=== PATIENT | female | born 1980 | race Caucasian/White ===

== ENCOUNTER 2019-06-04 13:47 | Emergency (ER) | payer OTHER ==
[~2019-06-04] VITALS: Ht 160 cm; Wt 104.3 kg
[2019-06-04 15:00] LABS: HEMATOCRIT 27.1 % (37.0-47.0); HEMOGLOBIN 8.8 gm/dL (12.0-15.0); MCH 22.7 pg (26.0-34.0); MCHC 32.4 g/dL (28.0-37.0); MCV 70.3 fL (80.0-100.0); MPV 7.8 fl. (7.2-11.1); NUCLEATED RBCS 0 /100WBC; PLATELET COUNT* 225 thou/uL (150-400); RBC 3.86 mil/uL (4.20-5.00); RDW-CV 16.3 % (10.5-14.5); WBC 3.7 thou/uL (4.0-11.0)
[2019-06-04 15:05] LABS: CALCIUM 7.8 mg/dL (8.5-10.1); CREATININE 0.7 mg/dL (0.6-1.3); POTASSIUM 3.7 mmol/L (3.5-5.1)
[2019-06-04 15:07] LABS: APTT 23.4 Seconds (25.0-31.3); PROTIME 10.1 Seconds (9.20-11.50)
[2019-06-04 15:09] LABS: URINE BILIRUBIN NEGATIVE (Negative); URINE BLOOD 3+ (Negative); URINE CLARITY CLOUDY; URINE COLOR STRAW; URINE GLUCOSE-RANDOM NEGATIVE (Negative); URINE KETONES NEGATIVE (Negative); URINE LEUKOCYTES-REFLEX NEGATIVE (Negative); URINE NITRITE-REFLEX NEGATIVE (Negative); URINE PROTEIN NEGATIVE (Negative); URINE UROBILINOGEN 0.2 E.U./dl (0.2-1.0)
[2019-06-04 15:10] LABS: ALBUMIN 3.4 g/dL (3.4-5.0); TOTAL BILIRUBIN 0.2 mg/dL (<0.1-1.0); TOTAL PROTEIN 6.7 g/dL (6.4-8.2)
[2019-06-04] MEDS ORDERED: MEDROXYPROGESTE10 MG PO (15:12)
[2019-06-04] MEDS ORDERED: SUPER THERAVIT1 EACH PO (15:17)
[2019-06-04 15:22] LABS: CASTS None Seen /LPF (None Seen); CRYSTALS None Seen /LPF (None Seen); SQUAMOUS 0-3 Few /LPF (0-3)
[2019-06-04 15:23] LABS: BACTERIA-REFLEX 1-9 Few /HPF (None Seen); URINE RBC >20 Many /HPF (0-2); URINE WBC-REFLEX 0-5 Rare /HPF (0-5)
[2019-06-04 15:30] VITALS: BP 132/84
[2019-06-04 15:34] LABS: ABSOLUTE EOSINOPHILS 0.1 thou/uL (0.0-0.7); ABSOLUTE MONOCYTES 0.1 thou/uL (0.0-1.2); ABSOLUTE NEUTROPHILS 2.6 thou/uL (1.6-8.1)
[2019-06-04 15:35] LABS: ANISOCYTOSIS Occasional; HYPOCHROMASIA 2+; MICROCYTES 2+; OVALOCYTES Occasional; PLATELET ESTIMATE ADEQUATE; TEARDROPS 1+
== END 2019-06-04 15:34 | disposition home or self-care (01) ==
LOC: M.ERS 13:47
PROVIDERS: Physician Assistant
DX: D64.9 Anemia, unspecified (principal); E83.51 Hypocalcemia; N93.9 Abnormal uterine and vaginal bleeding, unspecified; Z91.040 Latex allergy status; Z88.2 Allergy status to sulfonamides; Z88.7 Allergy status to serum and vaccine; Z98.890 Other specified postprocedural states; Z98.51 Tubal ligation status

== ENCOUNTER 2020-08-18 16:13 | Emergency (ER) | payer OTHER ==
[~2020-08-18] VITALS: Ht 160 cm; Wt 104.3 kg
[~2020-08-18 16:13] MED LIST: MEDROXYPROGESTE10 MG PO; SUPER THERAVIT1 EACH PO
[2020-08-18] MEDS ORDERED: IRON240 M1 PO (16:25)
[2020-08-18] MEDS ORDERED: BIRTH CONTROL (16:25)
[2020-08-18] MEDS ORDERED: [UNRECOGNIZED DRUG - OTHER] (16:25)
[2020-08-18] MEDS ORDERED: HYDROXYZINE HCL25 M2 PO (16:26)
[2020-08-18] MEDS ORDERED: SERTRALINE HCL100 MG PO (16:26)
[2020-08-18 17:02] VITALS: BP 130/84
== END 2020-08-18 17:05 | disposition home or self-care (01) ==
LOC: M.ERS 16:13
DX: S61.411A Laceration without foreign body of right hand, initial encounter (principal); Z91.040 Latex allergy status; Z88.2 Allergy status to sulfonamides; Z88.7 Allergy status to serum and vaccine; Z98.51 Tubal ligation status; Z98.890 Other specified postprocedural states; Z86.2 Personal history of diseases of the blood and blood-forming organs and certain disorders involving the immune mechanism; W25.XXXA Contact with sharp glass, initial encounter; Y93.89 Activity, other specified; Y92.89 Other specified places as the place of occurrence of the external cause; Y99.8 Other external cause status